=== PATIENT | female | born 2000 | race Caucasian/White ===

== ENCOUNTER 2022-07-11 12:10 | Emergency (ER) | payer MEDICAID ==
[~2022-07-11] VITALS: Ht 165.1 cm; Wt 64.0 kg
[2022-07-11 12:21] VITALS: BP 121/58
--- NOTE | 2022-07-11 12:46 | NUR ---
Patient ambulated to bed 7.
--- NOTE | 2022-07-11 12:58 | NUR ---
21 y/o female bib self with c/o vaginal bleeding, pelvic and low back pain x 3 days. Per patient, is 5 weeks . Patient is also complaining of dizziness, lightheadedness and headache. LMP 05/24/22 Medical History: Denies NKDA
[2022-07-11 13:42] LABS: APPEARANCE,URINE CLEAR (CLEAR); BILIRUBIN,URINE NEGATIVE (NEGATIVE); BLOOD, URINE 2+ (NEGATIVE); COLOR,URINE YELLOW (YELLOW); LEUKOCYTE ESTERASE ,URINE NEGATIVE (NEGATIVE); NITRITE, URINE NEGATIVE (NEGATIVE); PH,URINE 6.5 (5.0-9.0); UGLUCOSE NEGATIVE (NEGATIVE)
[2022-07-11 14:06] LABS: WBC,URINE 0-5 /HPF (0-5)
[2022-07-11 14:07] LABS: OTHER CASTS, URINE None Seen /LPF (None Seen)
[2022-07-11 14:08] LABS: BASOPHILS % (AUTO) 0.5 % (0.0-2.0); EOSINOPHILS % (AUTO) 0.6 % (0.0-4.0); HEMATOCRIT 39.4 % (36-48); HEMOGLOBIN 13.4 g/dL (12.0-16.0); LYMPHOCYTES # (AUTO) 1.9 K/uL (2.5-16.5); LYMPHOCYTES % (AUTO) 27.8 % (20.5-51.1); MEAN CORPUSCULAR HEMOGLOBIN 31 pg (27-31); MEAN CORPUSCULAR HGB CONC 34 g/dL (33-37); MEAN CORPUSCULAR VOLUME 89.8 fL (80-94); MONOCYTES # (AUTO) 0.6 K/uL (0.8-1.0); MONOCYTES % (AUTO) 8.6 % (1.7-9.3); NEUTROPHILS # (AUTO) 4.3 K/uL (1.8-7.7); NEUTROPHILS % (AUTO) 62.5 % (42.2-75.2); PLATELET COUNT (AUTO) 303 K/uL (140-450); RED BLOOD CELL COUNT(AUTO) 4.39 MIL/uL (4.20-5.40); RED CELL DISTRIBUTION WIDTH 13.1 % (11.6-13.7); WHITE BLOOD COUNT (AUTO) 6.9 K/uL (4.5-11.0)
--- NOTE | 2022-07-11 14:22 | NUR ---
Dr. Fung evaluating patient at bedside.
[2022-07-11 14:33] LABS: ALBUMIN 4.1 g/dL (3.4-5.0); CARBON DIOXIDE 28.8 mmol/L (21-32); CREATININE 0.7 mg/dL (0.6-1.3); POTASSIUM 3.8 mmol/L (3.5-5.1); TOTAL BILIRUBIN 0.3 mg/dL (0.0-1.0)
[2022-07-11] MEDS ORDERED: NAPR-54 PO (16:28)
[2022-07-11 16:44] VITALS: BP 110/58
== END 2022-07-11 16:44 | disposition home or self-care (01) ==
LOC: MED 12:10
DX: O03.9 Complete or unspecified spontaneous abortion without complication (principal); Z79.1 Long term (current) use of non-steroidal anti-inflammatories (NSAID); Z3A.08 8 weeks gestation of pregnancy
CPT/HCPCS: 36415; 76817; 80053; 81001; 81025; 84702; 85025; 86900; 86901; 99284; Q0092